=== PATIENT | male | born 1955 | race African-American/Black ===

== ENCOUNTER 2019-02-09 18:56 | Emergency (ER) | payer BC ==
[~2019-02-09] VITALS: Ht 175.3 cm; Wt 86.2 kg
[2019-02-09 19:00] VITALS: BP 158/84
[2019-02-09] MEDS ORDERED: Morphine Sulfate 4mg/ml Inj (IV USE ONLY) IVP ONE (19:00)
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
[2019-02-09] MEDS ORDERED: HYDROmorphone 1mg/ml Carpuject IVP ONE ×3 (19:45→22:30)
--- NOTE | 2019-02-09 19:55 | NUR ---
ED Nurse Note: 2 [employer] is at bedside at the moment talking to pt
[2019-02-09 19:59] LABS: BASOPHILS % (AUTO) 2.7 % (0.0-2.0); EOSINOPHILS % (AUTO) 2.1 % (0.0-3.0); HEMATOCRIT 49.1 % (42.0-52.0); HEMOGLOBIN 15.9 G/DL (14.2-18.0); LYMPHOCYTES % (AUTO) 22.4 % (20.0-45.0); MEAN CORPUSCULAR VOLUME 79 FL (80-99); MONOCYTES % (AUTO) 7.1 % (1.0-10.0); NEUTROPHILS % (AUTO) 65.8 % (45.0-75.0); PLATELET COUNT 232 K/UL (150-450); RED BLOOD COUNT 6.19 M/UL (4.70-6.10); RED CELL DISTRIBUTION WIDTH 13.6 % (11.6-14.8); WHITE BLOOD COUNT 7.4 K/UL (4.8-10.8)
[2019-02-09 20:09] LABS: ANION GAP 13 mmol/L (5-15); BLOOD UREA NITROGEN 14 mg/dL (7-18); CALCIUM 9.4 MG/DL (8.5-10.1); CARBON DIOXIDE 24 MMOL/L (21-32); CHLORIDE 105 MMOL/L (98-107); CREATININE 1.1 MG/DL (0.55-1.30); POTASSIUM 3.6 MMOL/L (3.5-5.1); SODIUM 141 MMOL/L (136-145)
--- NOTE | 2019-02-09 20:16 | Diagnostic Imaging Report ---
Indication: Right hip pain status post injury/trauma Technique: CT right hip was performed utilizing automated exposure control without intravenous contrast material. Axial, sagittal and coronal images were generated. CT dose: Total DLP 968.86 mGycm; CTDI vol 15.3,12.35 mGy Comparison: None Findings: There is an acute posterior fracture dislocation of the right femoral head with bone fragments in the acetabular fossa and impaction of the femur against the posterior superior aspect of the acetabulum. The pelvic ring appears intact. There are degenerative changes in the right hip with subchondral cysts present in the superior lateral acetabulum. The left total hip arthroplasty. Some sclerosis is noted in the left acetabulum. No dislocation noted on the left. Small linear cortical break noted in the left acetabulum (series 7 image #45) thought to be postsurgical in etiology. There is dense atherosclerotic vascular calcifications of the abdominal aorta and iliac arteries, which are normal in caliber. There is mild haziness of the mesentery with some small mesenteric lymph nodes. Appendix is normal in appearance. There is a small fat-containing umbilical hernia. IMPRESSION: Acute posterior right hip fracture dislocation with bone fragments in the acetabular fossa. Evidence of left total hip replacement. Small linear cortical break noted in the left acetabulum (series 7 image #45) thought to be chronic and postsurgical in etiology. Atherosclerotic disease. Haziness of the mesentery with small lymph nodes (adelaida mesentery). Findings are nonspecific and may post infectious, inflammatory or potentially neoplastic. Clinical correlation and follow-up is recommended. Salient findings correspond with the preliminary report. The CT scanner at [facility] is accredited by the [employer] and the scans are performed using protocols designed to limit radiation exposure to as low as reasonably achievable to attain images of sufficient resolution adequate for diagnostic evaluation.
--- NOTE | 2019-02-09 20:20 | Diagnostic Imaging Report ---
Indication: Back pain status post injury/trauma Technique: CT lumbar spine was performed utilizing automated exposure control without intravenous contrast material. Axial, sagittal and coronal images were generated. CT dose: Total DLP 968.86 mGycm; CTDI vol 15.3,12.35 mGy Comparison: None Findings: Exam mildly degraded by patient motion. Within these limitations: There are 5 nonrib-bearing lumbar-type vertebral bodies, assuming 12 paired ribs. The last set of ribs are slightly hypoplastic. There is mild scoliosis of the lumbar spine. No acute lumbar spine fractures identified. Vertebral body heights are maintained; there is no evidence of compression fracture. There are overall mild multilevel discogenic degenerative changes of the lumbar spine manifested by small disc bulges and small anterior osteophytes. Some facet disease also noted in the lower lumbar spine. Degenerative changes result in varying degrees of overall mild central canal stenosis and foraminal narrowing without focus of high-grade bony central canal or foraminal stenosis. Note that MRI would provide a more sensitive assessment of the central canal, disks and exiting nerve roots. The aorta is densely calcified but normal in caliber. Imaged lung bases are clear. There is a 1.5 cm indeterminate left adrenal nodule. Left hip prosthesis is partially visualized. IMPRESSION: No evidence of acute lumbar spine fracture. Overall mild multilevel discogenic degenerative changes of the lumbar spine. Atherosclerotic disease. Left hip arthroplasty partially visualized. Left adrenal nodule measuring 1.5 cm is probably benign, although risk is increased if there is a prior history of malignancy. Consider biochemical assays to determine functional status and exclude pheochromocytoma. Also consider follow-up adrenal CT protocol or chemical-shift MRI in 12 months to assess stability. Joslyn GUSTAFSON, et al. Management of Incidental Adrenal Masses: A White Paper of the ACR Incidental Findings Committee. J Am Zuleyka Radiol. 2017 Aug;14(8):4877-[address] The [address] scanner at [facility] is accredited by the [employer] and the scans are performed using protocols designed to limit radiation exposure to as low as reasonably achievable to attain images of sufficient resolution adequate for diagnostic evaluation.
[2019-02-09 21:07] VITALS: BP 155/80
[2019-02-09] MEDS ORDERED: fentaNYL 100 mcg/2 mL IV ONE (21:30)
--- NOTE | 2019-02-09 21:31 | Diagnostic Imaging Report ---
Indication: Headache/pain status post injury/trauma Technique: Continuous helical CT scanning of the head was performed utilizing automated exposure control without intravenous contrast material. Axial and coronal reconstructions were obtained. Comparison: No prior head CT available for comparison CT dose: Total DLP 2021.99 mGycm; CTDI vol 70.38,17.88 mGy Findings: There is no evidence of acute intracranial hemorrhage. No abnormal intra-axial or extra-axial fluid collections. There is no shift of midline structures. There is a 2 x 2.1 x 1.9 cm calcified dural based mass abutting the right tentorium and posterior falx which exerts mass effect on the spine and the corpus callosum. The shape and configuration of the cortical sulci, basal cisterns and ventricles is within normal limits for age. Webb-white differentiation is preserved. There is no evidence of cortical edema. There are postsurgical changes from right occipital craniotomy. No acute calvarial fractures identified. Mastoid air cells are clear. Mucosal thickening is noted involving the visualized paranasal sinuses. Globes are symmetric. No infiltration is noted in the orbital fat bilaterally. IMPRESSION: No evidence of acute intracranial hemorrhage, midline shift or CT evidence of acute territorial infarct. Approximately 2.1 cm calcified extra-axial mass along the right tentorium most likely a meningioma, possibly previously debulked from a right occipital surgical approach. Correlation with surgical history is recommended. Comparison with prior exams recommended to assess for interval change. This corresponds with the statrad preliminary report. The CT scanner at [facility] is accredited by the [employer] and the scans are performed using protocols designed to limit radiation exposure to as low as reasonably achievable to attain images of sufficient resolution adequate for diagnostic evaluation.
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
[2019-02-09] MEDS ORDERED: HYDROmorphone 1mg/ml Carpuject ONE (22:31)
[2019-02-09 22:45] VITALS: BP 154/86
--- NOTE | 2019-02-09 22:45 | NUR ---
ER DISCHARGE NOTE: [id number] arrived. Pt was transfere to [facility] via [facility]. bp 154/86, p 89, r 14, 98% RM. report given to DANETTE Camargo from [facility].
--- NOTE | 2019-02-10 11:11 | Diagnostic Imaging Report ---
Indication: Soreness of breath Technique: XRAY Chest 1v Comparison: None Findings: Limited exam due to patient rotation. Heart appears mildly enlarged although this may be exaggerated by AP technique. There are atherosclerotic gastric calcifications. Mediastinal contours appear sharp. There is eventration of the right hemidiaphragm. There are some streaky opacities at the right base. Some degenerative changes are noted in the spine and shoulders. No acute osseous abnormality identified. Impression: Limited exam due to patient rotation. Streaky opacities at the right base thought to be related to subsegmental atelectasis. Correlate clinically to exclude the possibility of developing infiltrate. Apparent mild cardiomegaly likely exaggerated due to AP technique. Atherosclerotic disease.
== END 2019-02-09 22:45 | disposition short-term general hospital (02) ==
LOC: EDBD 18:56 → EMR 19:30
DX: S72.091A Other fracture of head and neck of right femur, initial encounter for closed fracture (principal); V43.52XA Car driver injured in collision with other type car in traffic accident, initial encounter; Y92.410 Unspecified street and highway as the place of occurrence of the external cause; R51 Headache; R22.0 Localized swelling, mass and lump, head; M50.30 Other cervical disc degeneration, unspecified cervical region; M51.36 Other intervertebral disc degeneration, lumbar region; Z96.642 Presence of left artificial hip joint; I10 Essential (primary) hypertension
CPT/HCPCS: 36415; 70450; 71045; 72125; 72131; 72192; 80048; 85025; 96374; 96375; 96376; 99285; G0480; J1170; J2270; J2405; J3010; 80329